=== PATIENT | male | born 1965 | race Caucasian/White ===

== ENCOUNTER → 2018-01-25 12:39 | Outpatient (CLI) | payer BC, SELFPAY ==
--- NOTE | 2018-01-25 | DI.US.S_ITS ---
PROCEDURE: US SCROTUM INDICATIONS: TESTICLE SWELLING TECHNIQUE: Real-time scanning was performed of the scrotum and testicles, with image documentation. Color and pulse Doppler interrogation was performed of both testicles. COMPARISON: None. FINDINGS: Right: Testicle is normal in size at 4.4 x 3.0 x 3.8 cm, and homogenous in echotexture. Epididymis is normal in overall size and morphology. Large right spermatocele measuring greater than 7.2 x 5.2 cm. No hydrocele or varicoceles. Overlying scrotal skin is normal in thickness. Left: Testicle is normal in size at 5.2 x 2.5 x 3.0 cm, and homogeneous in echotexture. Epididymis is normal in overall size and morphology. Left epididymal cyst measuring 2.0 x 0.8 cm. No hydrocele or varicoceles. Overlying scrotal skin is normal in thickness. Doppler: Color and pulse Doppler demonstrate normal and symmetric arterial flow in both testicles. IMPRESSION: 1. Normal testicles bilaterally. 2. Large right spermatocele. 3. Several small left epididymal head cysts with the largest measuring 2.0 cm. Dictated by: Humberto Araujo [facility] Interpreted: Tulio Saravia MD on 01/25/2018 at 14:08 Approved by: Tulio Saravia M.D. on 01/25/2018 at 21:49
== END ==
PROVIDERS: Visit Provider Physician Assistant
DX: N43.41 Spermatocele of epididymis, single (principal); N50.89 Other specified disorders of the male genital organs; N50.3 Cyst of epididymis
CPT/HCPCS: 76870